=== PATIENT | male | born 1990 | race Caucasian/White ===

== ENCOUNTER 2020-11-29 06:23 | Day surgery (SDC) | payer OTHER ==
[~2020-11-29] VITALS: Ht 177.8 cm; Wt 101.2 kg
[2020-11-29] MEDS ORDERED: TRANEXAMIC ACID 100 MG/ML, 10ML ONE ×2 (06:42)
[2020-11-29] MEDS ORDERED: ROPIvacaine/PF 0.5%, 30 ML ONE (06:43)
[2020-11-29] MEDS ORDERED: VANCOMYCIN 1,000 MG ONE (06:43)
[2020-11-29] MEDS ORDERED: SODIUM CHLORIDE 0.9% 50 ML ONE (06:43)
[2020-11-29] MEDS ORDERED: EPINEPHRINE 1 MG/ML, 1ML ONE (06:43)
[2020-11-29] MEDS ORDERED: ROPIvacaine/PF 0.5%, 20 ML ONE (06:43)
[2020-11-29] MEDS ORDERED: KETOROLAC 30 MG/1 ML ONE (06:43)
[2020-11-29 06:49] VITALS: BP 144/94
[2020-11-29] MEDS ORDERED: BISACODYL 10 MG SUPP PR PRN (07:00)
[2020-11-29] MEDS ORDERED: MAGNESIUM HYDROXIDE 8%, 30ML UDC PO PRN (07:00)
[2020-11-29] MEDS ORDERED: ONDANSETRON 4 MG TABLET PO PRN (07:00)
[2020-11-29] MEDS ORDERED: PLEASE ENTER ALLERGIES MC SCH (07:00)
[2020-11-29] MEDS ORDERED: DIPHENHYDRAMINE 25 MG CAPSULE PO PRN (07:00)
[2020-11-29] MEDS ORDERED: ACETAMINOPHEN 650 MG/20.3 ML UDC PO PRN (07:00)
[2020-11-29] MEDS ORDERED: OXYcodone IR 5MG TABLET PO PRN (07:00)
[2020-11-29] MEDS ORDERED: SENNA/DOCUSATE TABLET PO PRN (07:00)
[2020-11-29] MEDS ORDERED: ONDANSETRON 2MG/ML, 2ML IV PRN (07:00)
[2020-11-29] MEDS ORDERED: CHLORHEXIDINE 15 ML UDC PO ONE (07:00)
[2020-11-29] MEDS ORDERED: CEFAZOLIN PMX 2GM/50ML 50 ML IVPB SCH (07:00)
[2020-11-29] MEDS ORDERED: ZOLPIDEM 5MG TABLET PO PRN (07:00)
[2020-11-29] MEDS ORDERED: LACTATED RINGERS 1,000 ML IV SCH (07:00)
[2020-11-29] MEDS ORDERED: HYDROcodone/APAP 5/325 TABLET PO PRN (07:00)
[2020-11-29] MEDS ORDERED: NS + 20MEQ KCL 1,000 ML IV SCH (07:00)
[2020-11-29] MEDS ORDERED: DUPI300P SQ (07:15)
[2020-11-29] MEDS ORDERED: FLUT1DIS5 INH (07:15)
[2020-11-29] MEDS ORDERED: ALBU8.5H8 INH (07:19)
[2020-11-29] MEDS ORDERED: CHLORHEXIDINE 15 ML UDC ONE (07:22)
[2020-11-29] MEDS ORDERED: ACETAMINOPHEN 500 MG TABLET ONE (07:23)
[2020-11-29] MEDS ORDERED: GABAPENTIN 300 MG CAPSULE ONE (07:23)
[2020-11-29] MEDS ORDERED: GABAPENTIN 300 MG CAPSULE PO ONE (07:30)
[2020-11-29] MEDS ORDERED: ACETAMINOPHEN 500 MG TABLET PO ONE (07:30)
[2020-11-29] MEDS ORDERED: VANCOMYCIN PER PHARMACY MC ONE (07:30)
[2020-11-29 07:54] LABS: BASOPHILS % (AUTO) 1 % (0-1); EOSINOPHILS % (AUTO) 5 % (1-7); LYMPHOCYTES % (AUTO) 38 % (22-44); MEAN CORPUSCULAR HEMOGLOBIN 28.7 pg (27.5-34.5); MEAN CORPUSCULAR HGB CONC 33.7 g/dL (33.2-36.2); MEAN PLATELET VOLUME 8.1 fL (7.4-10.4); MONOCYTES % (AUTO) 7 % (2-9); NEUTROPHILS % (AUTO) 50 % (42-75); PLATELET COUNT 266 x10^3/uL (130-400); RED BLOOD COUNT 5.44 x10^6/uL (4.38-5.82); RED CELL DISTRIBUTION WIDTH 14.8 % (9.4-14.8)
[2020-11-29 07:58] LABS: ALANINE AMINOTRANSFERASE 46 U/L (12-78); ALBUMIN 4.2 g/dL (3.4-5.0); ANION GAP 10 mmol/L (5-15); CALCIUM 9.5 mg/dL (8.5-10.1); CHLORIDE 105 mmol/L (98-107); CREATININE 1.05 mg/dL (0.7-1.3)
[2020-11-29] MEDS ORDERED: MIDAZOLAM 1 MG/ML, 2ML ONE (07:58)
[2020-11-29] MEDS ORDERED: FENTANYL PF 250 MCG/5ML ONE (07:58)
[2020-11-29 08:00] LABS: ALKALINE PHOSPHATASE 56 U/L (45-117); BILIRUBIN,TOTAL 0.5 mg/dL (0.2-1.0); TOTAL PROTEIN 7.7 g/dL (6.4-8.2)
[2020-11-29] MEDS ORDERED: VANCOMYCIN 1,800 MG in SODIUM CHLORIDE 0.9% 250 ML IV ONE (08:00)
[2020-11-29] MEDS ORDERED: VANCOMYCIN 2,000 MG in SODIUM CHLORIDE 0.9% 500 ML IV ONE (08:00)
[2020-11-29] MEDS ORDERED: DOCUSATE 100 MG CAPSULE PO SCH (09:00)
[2020-11-29] MEDS ORDERED: GLYCOPYRROLATE 0.2MG/1ML, 5ML ONE (09:28)
[2020-11-29] MEDS ORDERED: ROCURONIUM 10MG/ML,5ML ONE (09:28)
[2020-11-29] MEDS ORDERED: DEXAMETHASONE 4 MG/ML, 1ML ONE (09:28)
[2020-11-29] MEDS ORDERED: CEFAZOLIN 1,000 MG ONE (09:28)
[2020-11-29] MEDS ORDERED: ONDANSETRON 2MG/ML, 2ML ONE (09:28)
[2020-11-29] MEDS ORDERED: LIDOCAINE-MPF 2% ,5ML ONE (09:28)
[2020-11-29] MEDS ORDERED: PROPOFOL 10 MG/ML, 20ML ONE (09:28)
[2020-11-29] MEDS ORDERED: NEOSTIGMINE 1 MG/ML, 10ML ONE (09:28)
[2020-11-29] MEDS ORDERED: ALBUTEROL SULFATE 2.5 MG/3 ML NPPB PRN (09:30)
[2020-11-29] MEDS ORDERED: OXYcodone 5 MG/5 ML ORAL.SOL UDC PO PRN (09:30)
[2020-11-29] MEDS ORDERED: FENTANYL PF 100 MCG/2ML IV PRN (09:30)
[2020-11-29] MEDS ORDERED: PROMETHAZINE 25 MG/ML, 1ML IVPush PRN (09:30)
[2020-11-29] MEDS ORDERED: MEPERIDINE/PF 25MG/0.5ML IVPush PRN (09:30)
[2020-11-29] MEDS ORDERED: HYDROmorphone 1 MG/ML, 1ML INJ IVPush PRN (09:30)
[2020-11-29] MEDS ORDERED: LABETALOL 5MG/ML, 20ML IV PRN (09:30)
[2020-11-29] MEDS ORDERED: MIDAZOLAM 1 MG/ML, 2ML IV PRN (09:30)
[2020-11-29] MEDS ORDERED: HYDROmorphone 2 MG/ML, 1ML ONE (09:31)
[2020-11-29] MEDS ORDERED: DIPHENHYDRAMINE 50 MG/ML, 1ML ONE (09:55)
[2020-11-29] MEDS ORDERED: OXYcodone 5 MG/5 ML ORAL.SOL UDC ONE (09:55)
[2020-11-29] MEDS ORDERED: ACETAMINOPHEN 650 MG/20.3 ML UDC ONE (09:55)
[2020-11-29] MEDS ORDERED: FENTANYL PF 100 MCG/2ML ONE (09:55)
[2020-11-29] MEDS ORDERED: DIPHENHYDRAMINE 50 MG/ML, 1ML IVPush PRN (10:30)
[2020-11-29] MEDS ORDERED: ASPIRIN 81 MG TABLET EC PO SCH (18:00)
[2020-11-30] MEDS ORDERED: DEXAMETHASONE 4 MG/ML, 1ML IVPush SCH (06:00)
== END 2020-11-29 15:00 | disposition home or self-care (01) ==
LOC: OUT 06:23
PROVIDERS: ATTEND Orthopaedic Surgery
DX: M87.051 Idiopathic aseptic necrosis of right femur (principal); M87.052 Idiopathic aseptic necrosis of left femur; M25.751 Osteophyte, right hip; J45.909 Unspecified asthma, uncomplicated; Z79.899 Other long term (current) drug therapy; Z91.012 Allergy to eggs
CPT/HCPCS: 27130; 36415; 72170; 73501; 80053; 85025; 97161; 97166; C1713; C1776; J0171; J0690; J1100; J1170; J1885; J2250; J2405; J2704; J2710; J2795; J3010; J3370; J7050; J7120; 76000